=== PATIENT | female | born 1960 | race Caucasian/White ===

== ENCOUNTER 2019-07-16 11:50 | Day surgery (SDC) | payer BC ==
[2019-07-16] MEDS ORDERED: EPINEPHrine 0.3 MG in Ophthalmic Irrigation Solution 500 ML IV SCH (12:07)
[2019-07-16] MEDS ORDERED: Cyclopentolate 1% Opth Drop 2 ML BOT ONE (12:30)
[2019-07-16] MEDS ORDERED: Phenylephrine 2.5% Ophth Soln 5 ML BOT ONE (12:30)
[2019-07-16] MEDS ORDERED: Midazolam HCl 2 mg/2 ml Vial ONE ×2 (14:50→14:56)
[2019-07-16] MEDS ORDERED: PROPOFOL 20 ML ONE (14:56)
[2019-07-16] MEDS ORDERED: Ondansetron ODT 4 MG TAB ONE (16:01)
[2019-07-16] MEDS ORDERED: Promethazine HCl 25 MG/ML VIAL ONE (16:35)
--- NOTE | 2019-07-16 18:20 | OP ---
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 NAME OF PROCEDURES PERFORMED: 1. 25-gauge pars plana vitrectomy, left eye. 2. Rhegmatogenous retinal detachment, left eye. 3. Endolaser, left eye. 4. 15% SF6, left eye. ESTIMATED BLOOD LOSS: None. SPECIMENS REMOVED: None. COMPLICATIONS: None. ANESTHESIA: MAC with retrobulbar block. SUMMARY OF OPERATION: The patient was identified in the preoperative holding area. Correct eye being the left eye was marked for surgery. The patient was taken to the operating room, where MAC anesthesia was induced. A retrobulbar block was administered to the left eye. The block consisted of 1:1 ratio of 4% lidocaine and 0.75% Marcaine. A total of 5 mL was administered. The left eye was then prepped and draped in usual sterile ophthalmic fashion for surgery. A wire lid speculum was placed. A standard 25-gauge pars plana vitrectomy platform was fashioned with trocars placed approximately 4 mm from the limbus. The infusion was noted to be within the vitreous cavity prior to being turned on to infusion pressure of 30 mmHg. The light pipe Micro vitrector introduced in the eye under visualization of RESIGHT viewing system. A careful core and peripheral shave vitrectomy were performed. A macula on rhegmatogenous retinal detachment was noted from approximately 6 o'clock to 9 o'clock. A horseshoe tear was noted at approximately 7:30 with an adjacent hole. A great care was taken to relieve all traction off the aforementioned defects. Following vitrectomy, Endocautery was used to tasia all defects as well as to create a posterior drainage retinotomy. This was subsequently opened with a flute needle. Air-fluid exchange was performed, which allowed for complete flattening of the retina. Following the air-fluid exchange, the Endolaser was used to provide barricade around the retinotomy site as well as around the defect in a 360 degree cerclage in the typical fashion with sparing of the 3 o'clock and 9 o'clock meridians. Following Endolaser, the flute needle was reintroduced into the eye to remove any residual subretinal fluid. An air-gas exchange was performed with 15% SF6. The cannulas were sequentially removed and all sclerotomies were noted to be gas tight. The wire lid speculum was removed followed by application of TobraDex ophthalmic ointment and a light patch and shield. The patient tolerated the procedure well and was taken to the outpatient recovery area in good condition. Job ID: [id number]
== END 2019-07-16 17:10 | disposition home or self-care (01) ==
LOC: SDC 11:50
PROVIDERS: ATTEND Ophthalmology Retina Specialist
PROC: 08953ZZ Drainage of Left Vitreous, Percutaneous Approach (ICD-10-PCS; principal; 2019-07-16)
DX: H33.002 Unspecified retinal detachment with retinal break, left eye (principal)
CPT/HCPCS: J0171; J2250; J2550; J2704; Q0162